=== PATIENT | male | born 1945 | race Caucasian/White ===

== ENCOUNTER → 2024-06-29 | Outpatient (CLI) | payer OTHER, SELFPAY ==
--- NOTE | 2024-06-29 09:30 | RAD_ITS ---
STUDY: X-RAY CHEST REASON FOR EXAM: Male, 79 years old. Asbestosis. TECHNIQUE: Frontal and lateral views of the chest. COMPARISON: None. FINDINGS: Hyperinflation. Diffuse pleural calcifications, right greater than left. Bilateral pleural thickening with calcification. Cardiomegaly. Normal mediastinum and steve. Normal visualized pulmonary arteries. Aortic tortuosity. Normal visualized thoracic spine. Normal visualized ribs, clavicles, and shoulders. There is no demonstrated abnormality of the visualized soft tissue structures of the upper abdomen. RAD/Chest PA and Lateral IMPRESSION: Cardiomegaly with hyperinflation and diffuse pleural calcification compatible with asbestos exposure. No acute finding. Electronically Signed: Rajat Huang MD at 15:26 EST ,
== END | disposition home or self-care (01) ==
LOC: RAD 09:26
PROVIDERS: Referring Provider Chiropractor; Visit Provider Chiropractor
DX: J61 Pneumoconiosis due to asbestos and other mineral fibers (principal)
CPT/HCPCS: 71046